=== PATIENT | female | born 1975 | race Caucasian/White ===

== ENCOUNTER 2021-08-06 20:48 | Emergency (ER) | payer BC ==
[2021-08-06] MEDS ORDERED: Sodium Chloride 0.9% 10 ML Syringe FLUSH PRN (21:20)
[2021-08-06] MEDS ORDERED: EPINEPHrine 1 MG/ML SDV IM PRN (21:24)
[2021-08-06] MEDS ORDERED: Famotidine 20 MG/2 ML SDV IVPUSH PRN (21:24)
[2021-08-06] MEDS ORDERED: Dexamethasone 4 MG Tab PO ONE (21:24)
[2021-08-06] MEDS ORDERED: diphenhydrAMINE 50 MG/ML SDV IVPUSH PRN (21:24)
[2021-08-06] MEDS ORDERED: methylPREDNISolone Sodium Succinate 125 MG/2 ML SDV IVPUSH PRN (21:24)
[2021-08-06] MEDS ORDERED: Sodium Chloride 0.9% 10 ML Syringe FLUSH SCH (21:30)
--- NOTE | 2021-08-06 21:53 | EDM.PDOC ---
ED HPI GENERAL MEDICAL PROBLEM - General Chief Complaint: Respiratory Problem Stated Complaint: SOB/CONGESTION/COUGH/FEVER Time Seen by Provider: 08/06/21 21:08 Source of Information: Reports: Patient, RN Notes Reviewed History Limitations: Reports: No Limitations - History of Present Illness INITIAL COMMENTS - FREE TEXT/NARRATIVE: Patient is a 46-year-old female presenting to the emergency department with complaints of a 6-day history of Covid symptoms. She complains of cough, fever, chills, shortness of breath, diarrhea, and loss of taste and smell. Reports tightness in her chest with coughing and deep breathing. No significant chest pain. Denies vomiting and diarrhea. She has no chronic underlying medical conditions. She is not vaccinated against Covid. Generalized Pain Score (Numeric/FACES): 7 - Related Data Allergies Allergy/AdvReac Type Severity Reaction Status Date / Time aspirin Allergy Rash Verified 08/06/21 21:27 cephalexin [From Keflex] Allergy Rash Verified 08/06/21 21:27 Sulfa (Sulfonamide Allergy Rash Verified 08/06/21 21:27 Antibiotics) Home Meds: Home Meds Albuterol Sulfate [Albuterol Sulfate Hfa] 8.5 gm IH Q4H PRN #1 hfa.aer.ad 08/06/21 [Rx] Cetirizine HCl [Zyrtec] 08/06/21 [History] Norethindrone-Ethin. Estradiol [Nortrel 0.5-35-28 Tablet] 1 tab PO DAILY 08/06/21 [History] dexAMETHasone [Decadron] 6 mg PO DAILY 4 Days #4 tablet 08/06/21 [Rx] Past Medical History - Past Health History Medical/Surgical History: Denies Medical/Surgical History Social & Family History - Tobacco Use Tobacco Use Status *Q: Never Tobacco User ED ROS GENERAL - Review of Systems Review Of Systems: See Below Constitutional: Reports: Fever, Chills, Fatigue, Decreased Appetite HEENT: Reports: No Symptoms Respiratory: Reports: Shortness of Breath, Pleuritic Chest Pain, Cough Cardiovascular: Reports: Dyspnea on Exertion. Denies: Lightheadedness, Palpitations, Syncope Endocrine: Reports: No Symptoms GI/Abdominal: Reports: Diarrhea. Denies: Abdominal Pain, Nausea, Vomiting : Reports: No Symptoms Musculoskeletal: Reports: No Symptoms Skin: Reports: No Symptoms Neurological: Reports: No Symptoms Psychiatric: Reports: No Symptoms Hematologic/Lymphatic: Reports: No Symptoms Immunologic: Reports: No Symptoms ED EXAM, GENERAL - Physical Exam Exam: See Below Exam Limited By: No Limitations General Appearance: Alert, WD/WN, No Apparent Distress, Other (ill appearing) Respiratory/Chest: No Respiratory Distress, No Accessory Muscle Use, Chest Non- Tender, Other (fine crackles to right middle and upper lobes posteriorly.) Cardiovascular: Normal Peripheral Pulses, Regular Rate, Rhythm, No Edema, No Gallop, No JVD, No Murmur, No Rub GI/Abdominal: Normal Bowel Sounds, Soft, Non-Tender, No Organomegaly, No Distention, No Abnormal Bruit, No Mass Neurological: Alert, Oriented, CN II-XII Intact, Normal Cognition, Normal Gait, Normal Reflexes, No Motor/Sensory Deficits Psychiatric: Normal Affect, Normal Mood Skin Exam: Warm, Dry, Intact, Normal Color, No Rash #1 Interpretation EKG Date: 08/06/21 Time: 21:31 Rhythm: NSR Rate (Beats/Min): 112 [place]: Normal P-Wave: Present QRS: Normal ST-T: Normal QT: Normal Course - Vital Signs Last Recorded V/S: Last Vital Signs Temp 98.5 F 08/07/21 00:04 Pulse 92 08/07/21 00:04 Resp 18 08/07/21 00:04 BP 145/88 H 08/07/21 00:04 Pulse Ox 91 L 08/07/21 00:04 - Orders/Labs/Meds Orders: Active Orders 24 hr Category Date Time Status Peripheral IV Insertion Adult [OM.PC] Stat Oth 08/06/21 21:19 Ordered Labs: Laboratory Tests 08/06/21 08/06/21 08/06/21 Range/Units 21:00 21:45 21:45 WBC 7.42 (3.98-10.04) K/mm3 RBC 4.73 (3.98-5.22) M/mm3 Hgb 15.2 (11.2-15.7) gm/dl Hct 46.4 H (34.1-44.9) % MCV 98.1 H (79.4-94.8) fl MCH 32.1 (25.6-32.2) pg MCHC 32.8 (32.2-35.5) g/dl RDW Std Deviation 47.4 H (36.4-46.3) fL Plt Count 202 (182-369) K/mm3 MPV 9.0 L (9.4-12.3) fl Neut % (Auto) 75.6 H (34.0-71.1) % Lymph % (Auto) 17.7 L (19.3-51.7) % [place] % (Auto) 6.3 (4.7-12.5) % Eos % (Auto) 0 L (0.7-5.8) Baso % (Auto) 0.1 (0.1-1.2) % Neut # (Auto) 5.61 (1.56-6.13) K/mm3 Lymph # (Auto) 1.31 (1.18-3.74) K/mm3 [place] # (Auto) 0.47 H (0.24-0.36) K/mm3 Eos # (Auto) 0.00 L (0.04-0.36) K/mm3 Baso # (Auto) 0.01 (0.01-0.08) K/mm3 Manual Slide Review Abnormal smear D-Dimer, Quantitative (0.19-0.50) mg/L Sodium 137 (136-145) mEq/L Potassium 3.6 (3.5-5.1) mEq/L Chloride 102 (98-107) mEq/L Carbon Dioxide 25 (21-32) mEq/L Anion Gap 13.6 (5-15) BUN 7 (7-18) mg/dL Creatinine 0.8 (0.55-1.02) mg/dL Est Cr Clr Drug Dosing 87.27 mL/min Estimated GFR (MDRD) > 60 (>60) mL/min BUN/Creatinine Ratio 8.8 L (14-18) Glucose 105 H (70-99) mg/dL Calcium 8.4 L (8.5-10.1) mg/dL Total Bilirubin 0.5 (0.2-1.0) mg/dL AST 36 (15-37) U/L ALT 26 (14-59) U/L Alkaline Phosphatase 44 L (46-116) U/L Troponin I < 0.017 (0.00-0.056) ng/mL C-Reactive Protein 11.4 H* (<1.0) mg/dL NT-Pro-B Natriuret Pep (0-125) pg/mL Total Protein 7.2 (6.4-8.2) g/dl Albumin 3.1 L (3.4-5.0) g/dl Globulin 4.1 gm/dL Albumin/Globulin Ratio 0.8 L (1-2) SARS-CoV-2 RNA (CAROLINE) Positive H (NEGATIVE) 08/06/21 08/06/21 Range/Units 21:45 22:05 WBC (3.98-10.04) K/mm3 RBC (3.98-5.22) M/mm3 Hgb (11.2-15.7) gm/dl Hct (34.1-44.9) % MCV (79.4-94.8) fl MCH (25.6-32.2) pg MCHC (32.2-35.5) g/dl RDW Std Deviation (36.4-46.3) fL Plt Count (182-369) K/mm3 MPV (9.4-12.3) fl Neut % (Auto) (34.0-71.1) % Lymph % (Auto) (19.3-51.7) % [place] % (Auto) (4.7-12.5) % Eos % (Auto) (0.7-5.8) Baso % (Auto) (0.1-1.2) % Neut # (Auto) (1.56-6.13) K/mm3 Lymph # (Auto) (1.18-3.74) K/mm3 [place] # (Auto) (0.24-0.36) K/mm3 Eos # (Auto) (0.04-0.36) K/mm3 Baso # (Auto) (0.01-0.08) K/mm3 Manual Slide Review D-Dimer, Quantitative 0.85 H (0.19-0.50) mg/L Sodium (136-145) mEq/L Potassium (3.5-5.1) mEq/L Chloride (98-107) mEq/L Carbon Dioxide (21-32) mEq/L Anion Gap (5-15) BUN (7-18) mg/dL Creatinine (0.55-1.02) mg/dL Est Cr Clr Drug Dosing mL/min Estimated GFR (MDRD) (>60) mL/min BUN/Creatinine Ratio (14-18) Glucose (70-99) mg/dL Calcium (8.5-10.1) mg/dL Total Bilirubin (0.2-1.0) mg/dL AST (15-37) U/L ALT (14-59) U/L Alkaline Phosphatase (46-116) U/L Troponin I (0.00-0.056) ng/mL C-Reactive Protein (<1.0) mg/dL NT-Pro-B Natriuret Pep 10 (0-125) pg/mL Total Protein (6.4-8.2) g/dl Albumin (3.4-5.0) g/dl Globulin gm/dL Albumin/Globulin Ratio (1-2) SARS-CoV-2 RNA (CAROLINE) (NEGATIVE) Meds: Medications Discontinued Medications Generic Name Dose Route Start Last Admin Trade Name Freq PRN Reason Stop Dose Admin Dexamethasone 6 mg 08/06/21 21:24 08/06/21 22:19 Dexamethasone 4 Mg Tab PO 08/06/21 21:25 6 mg ONETIME ONE Administration Diphenhydramine HCl 50 mg 08/06/21 21:24 Diphenhydramine 50 Mg/Ml Sdv IVPUSH ASDIRECTED PRN hypersensitivity reaction Epinephrine HCl 0.3 mg 08/06/21 21:24 Epinephrine 1 Mg/Ml Sdv IM ASDIRECTED PRN hypersensitivity reaction Famotidine 20 mg 08/06/21 21:24 Famotidine 20 Mg/2 Ml Sdv IVPUSH ASDIRECTED PRN hypersensitivity reaction CASIRIVIMAB/IMDEVIMAB 10 ml/ 110 mls @ 220 mls/hr 08/06/21 21:24 08/06/21 22:19 Sodium Chloride IV 08/06/21 21:53 220 mls/hr ONETIME ONE Administration Methylprednisolone Sodium Succinate 125 mg 08/06/21 21:24 Methylprednisolone Sodium Succinate 125 Mg/2 Ml Sdv IVPUSH ASDIRECTED PRN hypersensitivity reaction Sodium Chloride 10 ml 08/06/21 21:20 Sodium Chloride 0.9% 10 Ml Syringe FLUSH ASDIRECTED PRN Keep Vein Open Sodium Chloride 30 ml 08/06/21 21:30 Sodium Chloride 0.9% 10 Ml Syringe FLUSH ASDIRECTED PK - Re-Assessments/Exams Free Text/Narrative Re-Assessment/Exam: Patient is a 46-year-old female presenting to the emergency department with complaints of a 6-day history of Covid symptoms. On initial arrival to ER, oxygen saturation was 100% on room air, however resting she is maintaining 92 to 94%. On exam, she has scattered fine crackles throughout her lung olivas. Deep breathing elicits harsh cough. Her BMI is 32 which does qualify her for monoclonal antibody infusion. I feel given the severity of her illness, she would benefit from this. I have ordered blood work, chest x-ray, EKG, Covid test. We will give her dexamethasone 6 mg p.o. Once Covid test comes back positive, we will plan to give monoclonal antibodies. I spoke with patient to provide information about Regeneron treatment for patient I offered them the ``Patient and Caregiver EUA Regeneron Fact Sheet to read and review I stated the drug has been approved by an emergency use authorization (EUA) process and has not fully been FDA reviewed or approved The patient meets the EUA requirements I discussed there are other potential treatment options that are currently not FDA approved to treat COVID-19. Offered opportunity to ask questions and all questions were answered Patient voiced understanding and agreed to proceed with treatment for patient. 08/06/21 23:04 Hematology is significant for D-dimer elevated 0.85, CRP 11.4. Troponin undetectably low. Chest x-ray shows bilateral Covid pneumonia. Patient has completed the Regeneron infusion and tolerated well. Once she has completed her 1 hour waiting. We will discharge her home with prescriptions for dexamethasone and albuterol inhaler. She will also be sent with a pulse oximeter to monitor her oxygen saturations. Discussed return precautions. Discharge instructions as documented. Departure - Departure Time of Disposition: 23:50 Disposition: Home, Self-Care 01 Condition: Good Clinical Impression: Pneumonia due to COVID-19 virus - Discharge Information *PRESCRIPTION DRUG MONITORING PROGRAM REVIEWED*: No *COPY OF PRESCRIPTION DRUG MONITORING REPORT IN PATIENT ALBER: No Prescriptions: Albuterol Sulfate [Albuterol Sulfate Hfa] 8.5 gm IH Q4H PRN #1 hfa.aer.ad PRN Reason: Shortness Of Breath dexAMETHasone [Decadron] 6 mg PO DAILY 4 Days #4 tablet Instructions: COVID-19 Referrals: PCP,None [Primary Care Provider] - Forms: ED Department Discharge Additional Instructions: Take the dexamethasone as prescribed. Use albuterol inhaler as prescribed. Use Tylenol and ibuprofen as needed for fever discomfort. Ensure you are taking an adequate amount of fluid. Monitor your oxygen saturations intermittently at home. If you are maintaining a saturation of 88 below or you develop any other new or worsening symptoms, please do not hesitate to return to the emergency department for reevaluation. Sepsis Event Note (ED) - Evaluation Sepsis Screening Result: Possible Sepsis Risk - Focused Exam Vital Signs: Vital Signs Temp Pulse Resp BP Pulse Ox 08/07/21 00:04 98.5 F 92 18 145/88 H 91 L - My Orders Last 24 Hours: My Active Orders 08/06/21 21:19 Peripheral IV Insertion Adult [OM.PC] Stat - Assessment/Plan Last 24 Hours: My Active Orders 08/06/21 21:19 Peripheral IV Insertion Adult [OM.PC] Stat
--- NOTE | 2021-08-07 06:53 | CR ---
Chest: Portable view of the chest was obtained. Comparison: No prior chest imaging is available. Patchy increased density is seen within both sides of the chest. Heart size and mediastinum are normal. Bony structures show an old healed fracture within the right clavicle. Impression: 1. Findings suspicious for mild COVID pneumonia. Diagnostic code #3
== END 2021-08-07 00:04 | disposition home or self-care (01) ==
LOC: JD.ED 20:48
DX: U07.1 COVID-19 (principal); J12.82 Pneumonia due to coronavirus disease 2019; Z88.8 Allergy status to other drugs, medicaments and biological substances; Z88.1 Allergy status to other antibiotic agents; Z88.2 Allergy status to sulfonamides
CPT/HCPCS: 36415; 71045; 80053; 83880; 84484; 85025; 85379; 86140; 87635; 93005; 99285; J8540; M0243; Q0243; U0002